=== PATIENT | female | born 1995 | race Caucasian/White ===

== ENCOUNTER 2024-06-23 15:09 | Outpatient (CLI) | payer OTHER, SELFPAY ==
--- NOTE | ~2024-06-23 | US_ITS ---
EXAMINATION: US OB <=14 wk fetus w TV DATE: 06/23/2024 15:59 INDICATION: Amenorrhea, unspecified. TECHNIQUE: Real-time transabdominal and transvaginal pelvic ultrasound was performed. COMPARISON: None. FINDINGS: TRANSABDOMINAL ULTRASOUND: The uterus measures 12.1 x 7.0 x 7.9 cm. TRANSVAGINAL ULTRASOUND: There is an intrauterine gestational sac with mean diameter of 4.0 cm. A yol k sac is identified. The crown rump length measures 2.4 cm. These measurements correlate with an estimated gestational age of 9 weeks and 2 day(s) (+/-) 5 day(s). heart motion is identified measuring 155 beats per minute (bpm) by M-mode Doppler. The right ovary measures 2.8 x 1.5 x 1.0 cm. The left ovary measures 1.4 x 1.4 x 1.7 cm. There is no free fluid in the pelvis. IMPRESSION: 1. Single living intrauterine gestation with estimated date of delivery of 01/24/2025. Reviewed, dictated and finalized at location A. IMPRESSION: 1. Single living intrauterine gestation with estimated date of delivery of 01/08.
== END 2024-06-23 15:10 | disposition home or self-care (01) ==
LOC: ANHIMG 15:15
PROVIDERS: Visit Provider Nurse Practitioner Obstetrics & Gynecology
DX: N91.2 Amenorrhea, unspecified (principal)
CPT/HCPCS: 76801; 76817

== ENCOUNTER 2024-09-24 11:32 | Outpatient (RCR) | payer OTHER, SELFPAY ==
[2024-09-24 12:05] VITALS: BP 114/65; PULSE 72
== END 2024-12-23 23:59 | disposition home or self-care (01) ==
LOC: ANHOBOP 11:32
PROVIDERS: Visit Provider Obstetrics & Gynecology
DX: O36.8120 Decreased fetal movements, second trimester, not applicable or unspecified (principal); Z3A.22 22 weeks gestation of pregnancy
CPT/HCPCS: 59025